=== PATIENT | female | born 1970 | race Caucasian/White ===

== ENCOUNTER 2020-09-24 19:24 | Inpatient (IN) ==
--- NOTE | 2020-09-24 19:58 | Emergency Department Note ---
History of Present Illness General Chief complaint: Fever Stated complaint: FEVER Time Seen by Provider: 09/24/20 19:34 Source: patient and family (Significant other who is at the bedside) Mode of arrival: ambulatory Limitations: no limitations History of Present Illness This patient is a 50-year-old female who has a history of rectal cancer that has metastasized to lymph nodes, comes in after having fever chills which started around 3:00. She just finished her fifth round of chemotherapy she gets it every 2 weeks she does have a port she says with the chemo she is had a lot of diarrhea and nausea and vomiting. She feels slightly nauseated today. She is not had a fever and that is new today she said she felt this occurred around 3:00 this afternoon and had a T-max of 100.6 she called the oncologist and by the time the call back it was 101.8. She had a Covid vaccine x2. She has no headache neck pain or stiffness no photophobia. No cough. She is a mild sore throat from vomiting. No lesions. No cough or shortness of breath or abdominal pain or rectal pain. Besides diarrhea she is had no blood or melena in her stool. No dysuria or hematuria. No lower extremity pain or swelling. No rash. 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 Father No problems noted. Brother No problems noted. Brother No problems noted. Brother No problems noted. Sister No problems noted. Son No problems noted. Son No problems noted. Social History Smoking Status: Never smoker Second Hand Exposure: No; Hx Alcohol Use: Yes Alcohol Intake Frequency: Monthly or Less Alcohol Intake Frequency Comment: Special Occasion Hx Substance Use: No Preferred Language: Serbian Communication Ability: Effective Visual Impairment: Limited Hearing Ability: Normal Ground Support Equipment Assembler Required: No Beliefs That Will Affect Care: None marital status: Current Living Situation: Spouse current occupational status: employed current occupation: Clerical Feels Safe at Home: Yes Childhood Exposure to Second-Hand Smoke: No caffeine: Yes (1 cups of tea/day ) during the past year weight has: remained stable Dental Care, Regularly: Yes Assistive Devices: Contacts Review of Systems A total of 10 systems reviewed and were otherwise negative Physical Exam Vital Signs Vital Signs - 24 hr 09/24/20 19:25 09/24/20 19:30 09/24/20 20:15 Temperature 37.3 C Temperature Source Temporal Artery Scan Pulse Rate 119 H 112 H Pulse Rate from SpO2 Sensor 112 H Respiratory Rate 16 20 14 Respiratory Effort / Characteristics Non-Labored Spontaneous Non-Labored Spontaneous Respiratory Depth Normal Respiratory Pattern Regular Blood Pressure 174/101 H Blood Pressure Mean 125 Blood Pressure Position Sitting Pulse Oximetry 97 98 97 Oxygen Delivery Method Room Air Room Air Sepsis Recent Fever Within 48 Hours Yes Sepsis New/Unexplained Change in Mental Status No Sepsis Action Taken by Nursing No Action Required 09/24/20 21:00 09/24/20 21:08 09/24/20 21:10 Temperature Temperature Source Pulse Rate 104 H 75 Pulse Rate from SpO2 Sensor 104 H Respiratory Rate 16 20 Respiratory Effort / Characteristics Non-Labored Spontaneous Respiratory Depth Normal Respiratory Pattern Blood Pressure 149/97 H Blood Pressure Mean 114 Blood Pressure Position Pulse Oximetry 97 98 Oxygen Delivery Method Room Air Room Air Sepsis Recent Fever Within 48 Hours Sepsis New/Unexplained Change in Mental Status Sepsis Action Taken by Nursing 09/24/20 21:21 09/24/20 22:00 09/24/20 22:30 Temperature 37.2 C Temperature Source Oral Pulse Rate 101 H Pulse Rate from SpO2 Sensor 101 H Respiratory Rate 19 Respiratory Effort / Characteristics Non-Labored Spontaneous Non-Labored Spontaneous Respiratory Depth Normal Respiratory Pattern Blood Pressure 139/88 Blood Pressure Mean 105 Blood Pressure Position Pulse Oximetry 94 Oxygen Delivery Method Room Air Room Air Sepsis Recent Fever Within 48 Hours Sepsis New/Unexplained Change in Mental Status Sepsis Action Taken by Nursing 09/24/20 23:00 09/24/20 23:33 09/24/20 23:34 Temperature Temperature Source Pulse Rate 97 H Pulse Rate from SpO2 Sensor 96 H Respiratory Rate 13 Respiratory Effort / Characteristics Non-Labored Spontaneous Non-Labored Spontaneous Respiratory Depth Normal Respiratory Pattern Regular Blood Pressure 144/96 H Blood Pressure Mean 112 Blood Pressure Position Pulse Oximetry 97 Oxygen Delivery Method Room Air Sepsis Recent Fever Within 48 Hours Sepsis New/Unexplained Change in Mental Status Sepsis Action Taken by Nursing General: Well developed well nourished female who appears in no acute distress, breathing comfortably on room air. Normal speech HEENT: Normal cephalic atraumatic. Pupils are equal round and reactive to light. Extraocular movements are intact. Oropharynx is pink with moist mucous membranes. No swelling of the mouth lips or tongue. Neck: Supple with a midline trachea. No meningeal signs or stiffness, no JVD or bruits. No Stridor. Negative Kernig and Brezinski sign Chest: Clear to auscultation bilaterally. No wheezes or rhonchi. No increased work of breathing. A port in right chest. It is not red or warm. Heart: Regular rate and rhythm without murmurs or gallops. Abdomen: Soft nontender, nondistended without rebound guarding or rigidity. Extremities: No cyanosis clubbing or edema. No calf tenderness or assymetry Spine/Back. Non tender to palpation. No CVA tenderness Skin: Good turgor without rashes. Neurologic exam: Cranial nerves two through 12 are intact. Motor and sensation are intact and symmetrical throughout. Course Administered Medications Discontinued Medications Sodium Chloride (Nss 1000ml) 1,000 mls @ 999 mls/hr IV .Q1H1M ONE Stop: 09/24/20 20:59 Last Infusion: 09/24/20 22:51 Dose: 0 mls/hr Documented by: [id number] Admin: 09/24/20 20:43 Dose: 500 mls/hr Documented by: [id number] Cefepime HCl 2,000 mg/ Syringe 20 mls @ 5 mls/min IV NOW STA; Protocol Stop: 09/24/20 21:38 Last Admin: 09/24/20 21:49 Dose: 5 mls/min Documented by: [id number] Potassium Chloride (K Abhishek / Wtr) 10 meq in 100 mls @ 100 mls/hr IV Q1H BRANDON Stop: 09/24/20 23:44 Last Admin: 09/24/20 23:01 Dose: 100 mls/hr Documented by: [id number] Infusion: 09/24/20 22:45 Dose: 0 mls/hr Documented by: [id number] Admin: 09/24/20 21:50 Dose: 100 mls/hr Documented by: [id number] Ondansetron HCl (Ondansetron Inj 2 Mg/Ml 2 Ml Vial) 4 mg IV NOW STA Stop: 09/24/20 20:39 Last Admin: 09/24/20 20:43 Dose: 4 mg Documented by: [id number] Critical Care Time Critical Care Time: Yes Total Critical Care Time: 35 Due to the patient's concern for sepsis with a fever and chemotherapy, need for IV fluids IV medications, consultation with oncology and hospitalist and repeat frequent reassessment, I have personally spent greater than 35 minutes of critical care time in the direct management of this patient. This includes bedside care, interpretation of diagnostic studies, and testing, discussion with consultants, patient, and family members, and other required patient management activities. This 35 minutes is in excess of all separately billable procedures. Medical Decision Making Differential Diagnosis Infection, neutropenia, C. difficile, pneumonia, sepsis, answer/chemo complication, dehydration, electrolyte or metabolic abnormality, Covid, UTI Medical Records Attestation: I reviewed the patient's medical records. Home Medications Current Medication List: was personally reviewed by me Laboratory Data Attestation: I reviewed the patient's lab results. Result diagrams: 09/24/20 20:36 09/24/20 20:36 Lab Results 09/24/20 09/24/20 09/24/20 Range/Units 20:14 20:14 20:36 WBC 7.01 (4.8-10.8) K/uL RBC 4.04 L (4.2-5.4) M/uL Hgb 11.0 L (12.0-16.0) g/dL Hct 33.8 L (37-47) % MCV 83.7 (80-100) fL MCH 27.2 (25-34) pg MCHC 32.5 (32-36) g/dL RDW Std Deviation 62.9 H (36.4-46.3) fL RDW Coeff of Srini 21.7 H (11.5-14.5) % Plt Count 111 L (130-400) K/uL MPV 9.3 (7.4-10.4) fL Immature Gran % (Auto) 0.9 % Neut % (Auto) 76.4 % Lymph % (Auto) 9.1 % Reeves % (Auto) 13.4 % Eos % (Auto) 0.1 % Baso % (Auto) 0.1 % Neut # (Auto) 5.35 (1.4-6.5) K/uL Lymph # (Auto) 0.64 L (1.2-3.4) K/uL Reeves # (Auto) 0.94 H (0.11-0.59) K/uL Eos # (Auto) 0.01 (0-0.5) K/uL Baso # (Auto) 0.01 (0-0.2) K/uL Immature Gran # (Auto) 0.06 H (0.00-0.02) K/uL Absolute Nucleated RBC 0.02 H (0-0) K/uL Nucleated RBC % (auto) 0.3 % Dohle Bodies 3+ Polychromasia 1+ Anisocytosis Present PT (9.0-12.0) Seconds INR (0.9-1.1) APTT (21.0-31.0) Seconds PTT Ratio Sodium (136-145) mmol/L Potassium (3.5-5.1) mmol/L Chloride (98-107) mmol/L Carbon Dioxide (21-32) mmol/L Anion Gap (3-11) BUN (7-18) mg/dl Creatinine (0.6-1.2) mg/dl Est Cr Clr Drug Dosing ml/min Est GFR ( Amer) ml/min Est GFR (Non-Af Amer) ml/min BUN/Creatinine Ratio (10-20) Glucose (70-99) mg/dl Lactate (0.4-2.0) mmol/L Calcium (8.5-10.1) mg/dl Magnesium (1.8-2.4) mg/dl Total Bilirubin (0.2-1) mg/dl AST (15-37) U/L ALT (12-78) U/L Alkaline Phosphatase (45-117) U/L Total Protein (6.4-8.2) gm/dl Albumin (3.4-5.0) gm/dl Globulin (2.5-4.0) gm/dl Albumin/Globulin Ratio (0.9-2) Procalcitonin (0-0.5) ng/ml COVID-19 Eval Order Covid19 at [facility] SARS-CoV-2 (PCR) NEGATIVE (Negative) 09/24/20 09/24/20 09/24/20 Range/Units 20:36 20:36 20:36 WBC (4.8-10.8) K/uL RBC (4.2-5.4) M/uL Hgb (12.0-16.0) g/dL Hct (37-47) % MCV (80-100) fL MCH (25-34) pg MCHC (32-36) g/dL RDW Std Deviation (36.4-46.3) fL RDW Coeff of Srini (11.5-14.5) % Plt Count (130-400) K/uL MPV (7.4-10.4) fL Immature Gran % (Auto) % Neut % (Auto) % Lymph % (Auto) % Reeves % (Auto) % Eos % (Auto) % Baso % (Auto) % Neut # (Auto) (1.4-6.5) K/uL Lymph # (Auto) (1.2-3.4) K/uL Reeves # (Auto) (0.11-0.59) K/uL Eos # (Auto) (0-0.5) K/uL Baso # (Auto) (0-0.2) K/uL Immature Gran # (Auto) (0.00-0.02) K/uL Absolute Nucleated RBC (0-0) K/uL Nucleated RBC % (auto) % Dohle Bodies Polychromasia Anisocytosis PT 10.6 (9.0-12.0) Seconds INR 1.0 (0.9-1.1) APTT 29.9 (21.0-31.0) Seconds PTT Ratio 1.1 Sodium 139 (136-145) mmol/L Potassium 2.6 L (3.5-5.1) mmol/L Chloride 108 H (98-107) mmol/L Carbon Dioxide 23 (21-32) mmol/L Anion Gap 8.0 (3-11) BUN 10 (7-18) mg/dl Creatinine 0.85 (0.6-1.2) mg/dl Est Cr Clr Drug Dosing 85.1 ml/min Est GFR ( Amer) 92.0 ml/min Est GFR (Non-Af Amer) 79.3 ml/min BUN/Creatinine Ratio 11.4 (10-20) Glucose 124 H (70-99) mg/dl Lactate 2.5 H* (0.4-2.0) mmol/L Calcium 8.5 (8.5-10.1) mg/dl Magnesium 1.5 L (1.8-2.4) mg/dl Total Bilirubin 0.2 (0.2-1) mg/dl AST 103 H (15-37) U/L ALT 128 H (12-78) U/L Alkaline Phosphatase 142 H (45-117) U/L Total Protein 7.1 (6.4-8.2) gm/dl Albumin 3.4 (3.4-5.0) gm/dl Globulin 3.7 (2.5-4.0) gm/dl Albumin/Globulin Ratio 0.9 (0.9-2) Procalcitonin (0-0.5) ng/ml COVID-19 Eval Order SARS-CoV-2 (PCR) (Negative) 09/24/20 09/24/20 Range/Units 20:36 23:02 WBC (4.8-10.8) K/uL RBC (4.2-5.4) M/uL Hgb (12.0-16.0) g/dL Hct (37-47) % MCV (80-100) fL MCH (25-34) pg MCHC (32-36) g/dL RDW Std Deviation (36.4-46.3) fL RDW Coeff of Srini (11.5-14.5) % Plt Count (130-400) K/uL MPV (7.4-10.4) fL Immature Gran % (Auto) % Neut % (Auto) % Lymph % (Auto) % Reeves % (Auto) % Eos % (Auto) % Baso % (Auto) % Neut # (Auto) (1.4-6.5) K/uL Lymph # (Auto) (1.2-3.4) K/uL Reeves # (Auto) (0.11-0.59) K/uL Eos # (Auto) (0-0.5) K/uL Baso # (Auto) (0-0.2) K/uL Immature Gran # (Auto) (0.00-0.02) K/uL Absolute Nucleated RBC (0-0) K/uL Nucleated RBC % (auto) % Dohle Bodies Polychromasia Anisocytosis PT (9.0-12.0) Seconds INR (0.9-1.1) APTT (21.0-31.0) Seconds PTT Ratio Sodium (136-145) mmol/L Potassium (3.5-5.1) mmol/L Chloride (98-107) mmol/L Carbon Dioxide (21-32) mmol/L Anion Gap (3-11) BUN (7-18) mg/dl Creatinine (0.6-1.2) mg/dl Est Cr Clr Drug Dosing ml/min Est GFR ( Amer) ml/min Est GFR (Non-Af Amer) ml/min BUN/Creatinine Ratio (10-20) Glucose (70-99) mg/dl Lactate 1.4 (0.4-2.0) mmol/L Calcium (8.5-10.1) mg/dl Magnesium (1.8-2.4) mg/dl Total Bilirubin (0.2-1) mg/dl AST (15-37) U/L ALT (12-78) U/L Alkaline Phosphatase (45-117) U/L Total Protein (6.4-8.2) gm/dl Albumin (3.4-5.0) gm/dl Globulin (2.5-4.0) gm/dl Albumin/Globulin Ratio (0.9-2) Procalcitonin 1.34 H (0-0.5) ng/ml COVID-19 Eval Order SARS-CoV-2 (PCR) (Negative) Imaging Data Attestation: I personally reviewed and interpreted this imaging study as follows: My Impression: Chest x-rayno acute infiltrate, failure, pneumothorax. There is in a port in the right chest Radiologist's Impression: Chest X-Ray 09/24/20 19:50 XR chest 1V portable HISTORY: 50 years-old Female SEPSIS acute sepsis COMPARISON: Chest radiograph 08/04/2020 TECHNIQUE: Portable AP view of the chest FINDINGS: Cardiomediastinal and hilar silhouettes are within normal limits. Right IJ Gyojmy-j-Yxwr catheter is unchanged. There is no pneumothorax, pleural effusion, airspace consolidation or overt pulmonary edema. The bones of the chest appear grossly intact. Mild mid thoracic dextroscoliosis. IMPRESSION: No acute process. ACT 112: Negative or not required by law. The above report was generated using voice recognition software. It may contain grammatical, syntax or spelling errors. Electronically signed by: Jourdan Alvarez M.D. 09/24/2020 8:05 PM ECG Data Attestation: I personally reviewed and interpreted this ECG as follows: Indication: + weakness Rate (beats per minute): 111 Rhythm: + sinus tachycardia ECG Intervals/blocks: + Normal QRS and + Normal QT ECG [place]: + Normal ECG ST segments: + Nonspecific ST abnormalities ECG Findings: no PACs Comparison ECG Date: no prior available MDM Narrative This patient comes in as described above. She was placed in room C10. She is on chemo (Folfoxiri) and followed by Dr. Nestor Carr for rectal cancer with metastases. She has not yet had radiation or surgery but has had 5 rounds of chemo 2 weeks apart. Given her fever and chills at home there is concern for infection. A full sepsis work-up was ordered. I did review her labs from her most recent visit to her oncologist she has not been neutropenic so far. IV access was established and she was hydrated with a 1 L IV normal saline bolus and further testing was obtained. Her white count is not elevated and she is not neutropenic. However given the fact that she has an elevated lactic acid of 2.5 and she is immunocompromised I did give her cefepime 2 g IV. She was also noted to have a low potassium of 2.6 and was given 2K riders in the ED IV. She does have central access. Her Covid testing was negative. Chest x-ray did not suggest congestive heart failure , pneumonia ,or pneumothorax. She has tachycardia on her EKG but nothing to suggest ischemia. I did discuss case with Nestor Carr who does feel she does need to come in the hospital for IV antibiotics monitoring and electrolyte replenishment and hydration. I did order stool studies that are pending including C. difficile. I consulted Dr. Pina who to see her in ER for further treatment and evaluation Continuous cardiac monitoring: Order was placed in the EMR for continuous cardia c monitoring. Upon my interpretation the patient was noted to be sinus tachycardia with a rate of 105. Impression & Plan Sepsis, Carcinoma of rectosigmoid (colon), Dehydration, Acute hypokalemia, Lab test negative for COVID-19 virus Discharge Plan Visit Data Chief Complaint: Fever Stated Complaint: FEVER ED Provider: Marvin David Discharge Problem: Sepsis, Carcinoma of rectosigmoid (colon), Dehydration, Acute hypokalemia, Lab test negative for COVID-19 virus Forms Stand Alone Forms: [facility] Prescriptions Prescriptions: No Action ondansetron HCl 8 mg tablet 8 mg PO Q8H PRN (Reason: Nausea) RF: 0 prochlorperazine maleate 10 mg tablet 10 mg PO Q6H PRN (Reason: Nausea) RF: 0 hyoscyamine sulfate 0.125 mg tablet 0.125 mg PO Q4 PRN (Reason: STOMACH CRAMPS) RF: 0 Folfoxiri 1 dose PO .[id number] RF: 0 olanzapine 5 mg tablet 5 mg PO UD PRN (Reason: NAUSEA FROM CHEMO) RF: 0 Discharge Problem: Sepsis Qualifiers: Sepsis type: sepsis due to unspecified organism Sepsis acute organ dysfunction status: unspecified Qualified Code(s): A41.9 - Sepsis, unspecified organism
[2020-09-24] MEDS ORDERED: SODIUM CHLORIDE 0.9% 1000ML 1,000 ML IV ONE (19:59)
--- NOTE | 2020-09-24 20:06 | XRay Report ---
XR chest 1V portable HISTORY: 50 years-old Female SEPSIS acute sepsis COMPARISON: Chest radiograph 08/04/2020 TECHNIQUE: Portable AP view of the chest FINDINGS: Cardiomediastinal and hilar silhouettes are within normal limits. Right IJ Qherui-y-Qrsy catheter is unchanged. There is no pneumothorax, pleural effusion, airspace consolidation or overt pulmonary brian a. The bones of the chest appear grossly intact. Mild mid thoracic dextroscoliosis. IMPRESSION: No acute process. ACT 112: Negative or not required by law. The above report was generated using voice recognition software. It may contain grammatical, syntax o r spelling errors. Electronically signed by: Jourdan Alvarez M.D. 09/24/2020 8:05 PM
[2020-09-24] MEDS ORDERED: ONDANSETRON INJ 2 MG/ML 2 ML VIAL IV STA (20:38)
[2020-09-24 20:47] LABS: Hematocrit (blood only) 33.8 % (37-47); Mean Corpuscular Hemoglobin 27.2 pg (25-34); Mean Corpuscular Hgb Conc 32.5 g/dL (32-36); Mean Corpuscular Volume 83.7 fL (80-100); Mean Platelet Volume 9.3 fL (7.4-10.4); Nucleated RBC # (auto) 0.02 K/uL (0-0); Nucleated RBC % (auto) 0.3 %; Platelet Count 111 K/uL (130-400); RDW Coefficient of Variation 21.7 % (11.5-14.5); RDW Standard Deviation 62.9 fL (36.4-46.3); Red Blood Count 4.04 M/uL (4.2-5.4); White Blood Count 7.01 K/uL (4.8-10.8)
[2020-09-24 21:00] LABS: Partial Thromboplastin Ratio 1.1; Partial Thromboplastin Time 29.9 Seconds (21.0-31.0); Prothrombin Time 10.6 Seconds (9.0-12.0)
[2020-09-24 21:07] LABS: Albumin Level 3.4 gm/dl (3.4-5.0); BUN Creatinine Ratio 11.4 (10-20); Calcium 8.5 mg/dl (8.5-10.1); Creatinine Clr Calc Pharmacy 85.1 ml/min; Est GFR (Non-African American) 79.3 ml/min; Magnesium 1.5 mg/dl (1.8-2.4); Potassium 2.6 mmol/L (3.5-5.1)
[2020-09-24 21:10] LABS: Albumin Globulin Ratio 0.9 (0.9-2); Bilirubin,Total 0.2 mg/dl (0.2-1); Globulin 3.7 gm/dl (2.5-4.0); Total Protein 7.1 gm/dl (6.4-8.2)
[2020-09-24 21:14] LABS: Anisocytosis Present; Basophils # (auto) 0.01 K/uL (0-0.2); Basophils % (auto) 0.1 %; Dohle Bodies 3+; Eosinophils # (auto) 0.01 K/uL (0-0.5); Eosinophils % (auto) 0.1 %; Immature Granulocytes # (auto) 0.06 K/uL (0.00-0.02); Immature Granulocytes % (auto) 0.9 %; Lymphocytes # (auto) 0.64 K/uL (1.2-3.4); Lymphocytes % (auto) 9.1 %; Monocytes # (auto) 0.94 K/uL (0.11-0.59); Monocytes % (auto) 13.4 %; Neutrophils # (auto) 5.35 K/uL (1.4-6.5); Neutrophils % (auto) 76.4 %; Polychromasia 1+
[2020-09-24] MEDS ORDERED: CEFEPIME 2,000 MG in SYRINGE 0 ML IV STA (21:35)
[2020-09-24] MEDS: POTASSIUM CHLORIDE / WTR 10 MEQ/100 ML PLCT IV SCH ×2 (21:50→23:01)
[2020-09-25 00:37] LABS: Appearance Urine Cloudy (Clear); Bacteria Urine Automated 1+ (Negative); Bilirubin Urine Negative (Negative); Blood Urine Negative (Negative); Color Urine Yellow; Epithelial Cell Urine Auto >30 /lpf (0-5); Glucose Urine UA Negative (Negative); Ketones Urine Trace (Negative); Leukocyte Esterase Urine Negative (Negative); Nitrite Urine Negative (Negative); Protein Urine Trace (Negative); Specific Gravity Urine 1.023 (1.000-1.030); Urobilinogen Urine Negative (Negative)
--- NOTE | 2020-09-25 00:59 | History and Physical Report ---
DATE OF ADMISSION: 09/24/2020. CHIEF COMPLAINT: Fever. HISTORY OF PRESENT ILLNESS: This is a 50-year-old female with a past medical history significant for rectosigmoid cancer diagnosed in May 2020. She is on chemo currently, adjuvant chemotherapy with FOLFOXIRI, prophylactic filgrastim. Avastin added into the 4th cycle. She had a total of 5 cycles, last 5th cycle was on 09/14/2020, she is to get chemo every 2 weeks. Since she was started on chemo, she is getting constant diarrhea and on and off nausea, vomiting. She has Zofran for nausea. Today at home she developed 101.8 degrees fevers and chills, so that is why she came here. No other complaints. No cough, no chest pain, no shortness of breath, no headache, no blurred visions, no earache, no runny nose. Has some sore throat because of vomiting. She had significant vomiting on Sunday. Currently no abdominal pain. Currently no blood in the stools or black stools. Normal bladder movements. No swelling in the legs, no rash. Ambulating okay. Appetite is not that great. Currently, resting comfortably and hemodynamically stable. In the ER, hemodynamics are stable, but her lactic acid was 2.5 when she came in, but repeat was normal. Potassium was 2.6, magnesium was 1.5. Procalcitonin was 1.34. SARS-CoV-2 PCR was negative and she also had a COVID shot. ALLERGIES: No known drug allergies. PAST MEDICAL HISTORY: As mentioned above. PAST SURGICAL HISTORY: Colonoscopy, dilatation and curettage, insertion of tunneled catheter, vaginal delivery x2. MEDICATIONS: The patient is on FOLFOXIRI chemotherapy, hyoscyamine 0.125 mg p.o. q. 4 hours p.r.n., Zofran 8 mg p.o. q. 8 hours p.r.n., prochlorperazine 10 mg p.o. q. 6 hours p.r.n. FAMILY HISTORY: Significant for son has food allergies; sister has antiphospholipid, lupus; mother has hypertension; father has thyroid disorder. SOCIAL HISTORY: , no smoking, no alcohol, no drug use. REVIEW OF SYSTEMS: As per HPI. Rest of the review of systems is negative. PHYSICAL EXAMINATION: GENERAL: The patient is obese, not in acute distress. VITAL SIGNS: Temperature 37.2, pulse 97, respiratory rate 13, blood pressure 144/96, oxygen 97% on room air. HEENT: Pupils equal, round and reactive to light. Oral mucosa dry. NECK: No JVD, no neck masses. HEART: S1 and S2 heard. Regular rate and rhythm. No murmur, no gallop. RESPIRATORY SYSTEM: Normal AP diameter. No accessory muscle use. No wheeze, no crackles. ABDOMEN: Soft, bowel sounds present, nontender, no distention. CENTRAL NERVOUS SYSTEM: Cranial nerves II-XII grossly intact, nonfocal. EXTREMITIES: No edema, no erythema. LABORATORY DATA: WBC 7, hemoglobin 11, hematocrit 33.8, platelets 111. PT 10.6, INR 1, APTT 29.9. Sodium 139, potassium 2.6, chloride 108, bicarbonate 23, BUN 10, creatinine 0.8, serum glucose 124, lactate 1.4, calcium 8.5, magnesium 1.5, total bilirubin 0.2, AST 102, ALT 122, alkaline phosphatase 142. Procalcitonin 1.34. SARS-CoV-2 PCR negative. IMAGING DATA: Chest x-ray, no acute process. EKG: Sinus tachycardia at a rate of 111. No previous ECGs available. ASSESSMENT AND PLAN: This is a 50-year-old female who is on chemo for rectosigmoid cancer and presents with fever. 1. Fever: The patient is on chemo for rectosigmoid colon cancer diagnosed in May 2020. No neutropenia, no leukopenia or leukocytosis, but her lactic acid was 2.5 on admission. Currently afebrile. Empirically started on vancomycin and cefepime. We will follow the cultures. The patient also having ongoing diarrhea, will check stool for C. diff, and IV fluids and monitor in the tele floor. 2. Hypokalemia and hypomagnesemia: Will replace. Follow the repeat labs. 3. Anemia and thrombocytopenia: Hemoglobin 11 and platelets of 111, possibly from chemo. Will follow the labs. 4. Rectosigmoid colon cancer: Currently on chemo. Follow up with heme/onc. 5. Elevated transaminitis and alkaline phosphatase: We will follow repeat labs in a.m., also get liver ultrasound. 6. Deep venous thrombosis prophylaxis: Placed on Lovenox. Will follow the platelets. DISPOSITION: Admit to tele floor. Expect to discharge home and follow up with family doctor. PT/OT prior to discharge. Social service to help with discharge planning. Level 1 full code. Job ID: [id number] [facility]
[2020-09-25 01:13] LABS: Amorphous Sediment Urine Present (None Prsent)
[2020-09-25 01:14] LABS: RBC Urine Automated 0-4 /hpf (0-4); Uric Acid Crystals Urine Present (None Prsent)
[2020-09-25 01:15] LABS: Cast Urine Automated 0 /lpf (0-5)
[2020-09-25] MEDS ORDERED: NITROGLYCERIN SL 0.4 MG/TAB TAB SL PRN (01:19)
[2020-09-25] MEDS ORDERED: ONDANSETRON INJ 2 MG/ML 2 ML VIAL IV PRN (01:19)
[2020-09-25] MEDS ORDERED: ACETAMINOPHEN 325 MG TAB PO PRN (01:19)
[2020-09-25] MEDS ORDERED: HYOSCYAMINE SULFATE 0.125 MG TAB PO PRN (01:19)
[2020-09-25] MEDS ORDERED: PROCHLORPERAZINE MALEATE 10 MG TAB PO PRN (01:19)
[2020-09-25] MEDS ORDERED: VANCOMYCIN HCL 1,000 MG in SODIUM CHLORIDE 0.9% 250 ML IV SCH (01:19)
[2020-09-25] MEDS ORDERED: VANCOMYCIN CONSULT ACTIVE PRN (01:19)
[2020-09-25] MEDS ORDERED: VANCOMYCIN HCL 2,250 MG in SODIUM CHLORIDE 0.9% 500 ML IV STA (01:54)
[2020-09-25] MEDS ORDERED: POTASSIUM CHLORIDE CRTAB 20 MEQ TABCR PO STA ×2 (01:57→18:11)
[2020-09-25] MEDS ORDERED: CEFEPIME CONSULT ACTIVE PRN (02:00)
[2020-09-25] MEDS: MAGNESIUM SULFATE / D5W 1 GM/100 ML BAG IV SCH ×2 (02:16→04:15)
[2020-09-25] MEDS: D5NSS + 20MEQ KCL 20 MEQ/1,000 ML BAG IV SCH ×3 (02:16→18:34)
[2020-09-25 06:07] LABS: Hemoglobin 9.8 g/dL (12.0-16.0); Mean Corpuscular Hemoglobin 27.5 pg (25-34); Mean Corpuscular Hgb Conc 32.7 g/dL (32-36); Mean Platelet Volume 9.5 fL (7.4-10.4); Nucleated RBC # (auto) 0.02 K/uL (0-0); Nucleated RBC % (auto) 0.3 %; Platelet Count 106 K/uL (130-400); RDW Coefficient of Variation 22.1 % (11.5-14.5); RDW Standard Deviation 64.5 fL (36.4-46.3); Red Blood Count 3.57 M/uL (4.2-5.4); White Blood Count 7.33 K/uL (4.8-10.8)
[2020-09-25] MEDS: CEFEPIME 2,000 MG in SYRINGE 0 ML IV SCH ×3 (06:21→21:57)
[2020-09-25] MEDS ORDERED: HEPARIN 100 UNIT/ML 5ML FLUSH FLUSH PRN (06:28)
[2020-09-25 06:31] LABS: ALC (manual) 1.21 K/uL (1.2-3.4); ANC (manual) 5.16 K/uL (1.4-6.5); Anisocytosis Present; Lymphocytes # (manual) 1.21 K/uL (1.2-3.4); Lymphocytes % (manual) 16.5 %; Monocytes # (manual) 0.89 K/uL (0.11-0.59); Monocytes % (manual) 12.2 %; Neutrophils # (manual) 5.16 K/uL (1.4-6.5); Neutrophils % (manual) 70.4 %; Polychromasia 1+
[2020-09-25 06:50] LABS: Alanine Aminotransferase 98 U/L (12-78); Albumin Level 2.7 gm/dl (3.4-5.0); Alkaline Phosphatase 101 U/L (45-117); Aspartate Aminotransferase 75 U/L (15-37); BUN Creatinine Ratio 10.1 (10-20); Bilirubin Direct < 0.1 mg/dl (0-0.2); Bilirubin,Total 0.3 mg/dl (0.2-1); Blood Urea Nitrogen 7 mg/dl (7-18); Calcium 7.5 mg/dl (8.5-10.1); Carbon Dioxide 24 mmol/L (21-32); Chloride 113 mmol/L (98-107); Creatinine Clr Calc Pharmacy 111.1 ml/min; Est GFR (African American) 119.1 ml/min; Est GFR (Non-African American) 102.8 ml/min; Glucose 126 mg/dl (70-99); Magnesium 2.4 mg/dl (1.8-2.4); Phosphorus 1.6 mg/dl (2.5-4.9); Sodium 142 mmol/L (136-145); Total Protein 5.7 gm/dl (6.4-8.2)
[2020-09-25] MEDS ORDERED: POTASSIUM PHOS 3 MMOL/1 ML INFUSION IV STA (06:53)
--- NOTE | 2020-09-25 06:57 | Hospitalist Progress Note ---
Date of Service September 25, 2020 Assessment & Plan (1) Fever: (2) Carcinoma of rectosigmoid (colon): This is a 50-year-old female who is on chemo for rectosigmoid cancer and presents with fever. 1. Fever in immunocompromised pt. 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 No neutropenia, no leukopenia or leukocytosis, but her lactic acid was 2.5 on admission. Afebrile since arriving to the hospital. Empirically started on vancomycin and cefepime repeat lactic acid 1.4 Procalcitonin 1.4 We will follow the cultures. The patient also having ongoing diarrhea, will check stool for C. diff C. diff negative Follow urine cultx, stool cultx, blood cultx IV fluids and monitor in the tele floor. 2. Hypokalemia, hypomagnesemia, hypophosphatemia: Likely secondary to poor p.o. intake, and GI loss Replete and monitor 3. Anemia and thrombocytopenia: Hemoglobin 11 and platelets of 111, possibly from chemo. Will follow the labs. 4. Rectosigmoid colon cancer: Currently on chemo. Follow up with heme/onc. 5. Elevated transaminitis and alkaline phosphatase: We will follow repeat labs in a.m., also get liver ultrasound. DVT prophylaxis: Placed on Lovenox. Will follow the platelets. DISPOSITION: Admit to tele floor. Expect to discharge home and follow up with family doctor and oncologist. PT/OT prior to discharge. Social service to help with discharge planning. Full code. Admission and Anticipated Discharge Date Admission Date: September 24, 2020 Subjective Patient seen in follow-up of fever, nausea vomiting diarrhea, in the setting of colorectal cancer and chemotherapy treatment Patient reports that she is feeling much better since admission Reports that nausea vomiting and loose stools are normal for her since she started chemotherapy Afebrile since admission Lying in bed in no acute distress, currently has no complaints Review of Systems Review of Systems: All systems reviewed & are unremarkable except as noted in HPI & below Constitutional: no fever and no chills Respiratory: no cough and no dyspnea Cardiovascular: no chest pain and no palpitations Gastrointestinal: + diarrhea/loose stools; no abdominal pain and no vomiting Physical Exam Physical Exam: GENERAL: The patient is obese, not in acute distress. HEENT: NC/AT, EOMI, Pupils equal, round and reactive to light. Oral mucosa dry. NECK: No JVD, no neck masses. HEART: S1 and S2 heard. Regular rate and rhythm. No murmur, no gallop. RESPIRATORY: Normal AP diameter. No accessory muscle use. No wheeze, no crackles. ABDOMEN: Soft, bowel sounds present, nontender, no distention. NEURO: Alert and oriented and answering questions appropriately, no facial asymmetry, speech fluent, moves extremities spontaneously EXTREMITIES: No edema, no erythema. Results & Data Results & Data ([facility]) Vital Signs (Past 12 Hours) Vital Signs Temp Pulse Pulse Resp BP BP Pulse Ox 09/25/20 01:31 36.9 C 88 16 124/92 99 09/25/20 01:19 36.9 C 88 16 124/92 99 09/25/20 00:55 152/94 H 09/25/20 00:49 37.0 C 92 H 20 152/94 H 98 09/25/20 00:08 107 H 17 98 09/24/20 23:00 97 H 13 144/96 H 97 09/24/20 22:30 37.2 C 09/24/20 22:00 101 H 19 139/88 94 09/24/20 21:08 75 20 98 09/24/20 21:00 104 H 16 149/97 H 97 09/24/20 20:15 112 H 14 97 09/24/20 19:30 20 98 09/24/20 19:25 37.3 C 119 H 16 174/101 H 97 Pulse Ox 09/25/20 01:31 09/25/20 01:19 99 09/25/20 00:55 09/25/20 00:49 09/25/20 00:08 09/24/20 23:00 09/24/20 22:30 09/24/20 22:00 09/24/20 21:08 09/24/20 21:00 09/24/20 20:15 09/24/20 19:30 09/24/20 19:25 Laboratory Results 09/25/20 09/25/20 09/25/20 Range/Units 05:16 05:16 00:11 WBC 7.33 (4.8-10.8) K/uL RBC 3.57 L (4.2-5.4) M/uL Hgb 9.8 L (12.0-16.0) g/dL Hct 30.0 L (37-47) % MCV 84.0 (80-100) fL MCH 27.5 (25-34) pg MCHC 32.7 (32-36) g/dL RDW Std Deviation 64.5 H (36.4-46.3) fL RDW Coeff of Srini 22.1 H (11.5-14.5) % Plt Count 106 L (130-400) K/uL MPV 9.5 (7.4-10.4) fL Immature Gran % (Auto) % Neut % (Auto) % Lymph % (Auto) % [place] % (Auto) % Eos % (Auto) % Baso % (Auto) % Neut # (Auto) (1.4-6.5) K/uL Lymph # (Auto) (1.2-3.4) K/uL [place] # (Auto) (0.11-0.59) K/uL Eos # (Auto) (0-0.5) K/uL Baso # (Auto) (0-0.2) K/uL Immature Gran # (Auto) (0.00-0.02) K/uL Absolute Nucleated RBC 0.02 H (0-0) K/uL Nucleated RBC % (auto) 0.3 % Neutrophils % (Manual) 70.4 % Lymphocytes % (Manual) 16.5 % Monocytes % (Manual) 12.2 % Promyelocytes % (Man) % Neutrophils # (Manual) 5.16 (1.4-6.5) K/uL Total Absolute Neuts 5.16 (1.4-6.5) K/uL Lymphocytes # (Manual) 1.21 (1.2-3.4) K/uL Total Abs Lymphocytes 1.21 (1.2-3.4) K/uL Monocytes # (Manual) 0.89 H (0.11-0.59) K/uL Promyelocytes # (Man) (0-0) K/uL Dohle Bodies Polychromasia 1+ Anisocytosis Present PT (9.0-12.0) Seconds INR (0.9-1.1) APTT (21.0-31.0) Seconds PTT Ratio Sodium 142 (136-145) mmol/L Potassium 3.0 L D (3.5-5.1) mmol/L Chloride 113 H (98-107) mmol/L Carbon Dioxide 24 (21-32) mmol/L Anion Gap 5.0 (3-11) BUN 7 (7-18) mg/dl Creatinine 0.65 (0.6-1.2) mg/dl Est Cr Clr Drug Dosing 111.1 ml/min Est GFR ( Amer) 119.1 ml/min Est GFR (Non-Af Amer) 102.8 ml/min BUN/Creatinine Ratio 10.1 (10-20) Glucose 126 H (70-99) mg/dl Lactate (0.4-2.0) mmol/L Calcium 7.5 L (8.5-10.1) mg/dl Phosphorus 1.6 L (2.5-4.9) mg/dl Magnesium 2.4 (1.8-2.4) mg/dl Total Bilirubin 0.3 (0.2-1) mg/dl Direct Bilirubin < 0.1 (0-0.2) mg/dl AST 75 H (15-37) U/L ALT 98 H (12-78) U/L Alkaline Phosphatase 101 (45-117) U/L Total Protein 5.7 L (6.4-8.2) gm/dl Albumin 2.7 L (3.4-5.0) gm/dl Globulin (2.5-4.0) gm/dl Albumin/Globulin Ratio (0.9-2) Procalcitonin (0-0.5) ng/ml Urine Color Urine Appearance (Clear) Urine pH (4.5-7.5) Ur Specific [place] (1.000-1.030) Urine Protein (Negative) Urine Glucose (UA) (Negative) Urine Ketones (Negative) Urine Blood (Negative) Urine Nitrite (Negative) Urine Bilirubin (Negative) Urine Urobilinogen (Negative) Ur Leukocyte Esterase (Negative) Urine WBC (Auto) (0-5) /hpf Urine RBC (Auto) (0-4) /hpf U Hyaline Cast (Auto) (0-5) /lpf U Epithel Cells (Auto) (0-5) /lpf Urine Bacteria (Auto) (Negative) Ur Renal Epithelial Cell Uric Acid Crystals (None Prsent) Amorphous Sediment (None Prsent) Stl C. diff Tox B Gene Negative Cdiff Gene (Neg) COVID-19 Eval Order SARS-CoV-2 (PCR) (Negative) 09/25/20 09/24/20 09/24/20 Range/Units 00:11 23:02 20:36 WBC (4.8-10.8) K/uL RBC (4.2-5.4) M/uL Hgb (12.0-16.0) g/dL Hct (37-47) % MCV (80-100) fL MCH (25-34) pg MCHC (32-36) g/dL RDW Std Deviation (36.4-46.3) fL RDW Coeff of Srini (11.5-14.5) % Plt Count (130-400) K/uL MPV (7.4-10.4) fL Immature Gran % (Auto) % Neut % (Auto) % Lymph % (Auto) % [place] % (Auto) % Eos % (Auto) % Baso % (Auto) % Neut # (Auto) (1.4-6.5) K/uL Lymph # (Auto) (1.2-3.4) K/uL [place] # (Auto) (0.11-0.59) K/uL Eos # (Auto) (0-0.5) K/uL Baso # (Auto) (0-0.2) K/uL Immature Gran # (Auto) (0.00-0.02) K/uL Absolute Nucleated RBC (0-0) K/uL Nucleated RBC % (auto) % Neutrophils % (Manual) % Lymphocytes % (Manual) % Monocytes % (Manual) % Promyelocytes % (Man) % Neutrophils # (Manual) (1.4-6.5) K/uL Total Absolute Neuts (1.4-6.5) K/uL Lymphocytes # (Manual) (1.2-3.4) K/uL Total Abs Lymphocytes (1.2-3.4) K/uL Monocytes # (Manual) (0.11-0.59) K/uL Promyelocytes # (Man) (0-0) K/uL Dohle Bodies Polychromasia Anisocytosis PT (9.0-12.0) Seconds INR (0.9-1.1) APTT (21.0-31.0) Seconds PTT Ratio Sodium (136-145) mmol/L Potassium (3.5-5.1) mmol/L Chloride (98-107) mmol/L Carbon Dioxide (21-32) mmol/L Anion Gap (3-11) BUN (7-18) mg/dl Creatinine (0.6-1.2) mg/dl Est Cr Clr Drug Dosing ml/min Est GFR ( Amer) ml/min Est GFR (Non-Af Amer) ml/min BUN/Creatinine Ratio (10-20) Glucose (70-99) mg/dl Lactate 1.4 (0.4-2.0) mmol/L Calcium (8.5-10.1) mg/dl Phosphorus (2.5-4.9) mg/dl Magnesium (1.8-2.4) mg/dl Total Bilirubin (0.2-1) mg/dl Direct Bilirubin (0-0.2) mg/dl AST (15-37) U/L ALT (12-78) U/L Alkaline Phosphatase (45-117) U/L Total Protein (6.4-8.2) gm/dl Albumin (3.4-5.0) gm/dl Globulin (2.5-4.0) gm/dl Albumin/Globulin Ratio (0.9-2) Procalcitonin 1.34 H (0-0.5) ng/ml Urine Color Yellow Urine Appearance Cloudy A (Clear) Urine pH 5.0 (4.5-7.5) Ur Specific [place] 1.023 (1.000-1.030) Urine Protein Trace H (Negative) Urine Glucose (UA) Negative (Negative) Urine Ketones Trace H (Negative) Urine Blood Negative (Negative) Urine Nitrite Negative (Negative) Urine Bilirubin Negative (Negative) Urine Urobilinogen Negative (Negative) Ur Leukocyte Esterase Negative (Negative) Urine WBC (Auto) 10-30 H (0-5) /hpf Urine RBC (Auto) 0-4 (0-4) /hpf U Hyaline Cast (Auto) 0 (0-5) /lpf U Epithel Cells (Auto) >30 H (0-5) /lpf Urine Bacteria (Auto) 1+ H (Negative) Ur Renal Epithelial Cell Not Reportable Uric Acid Crystals Present A (None Prsent) Amorphous Sediment Present A (None Prsent) Stl C. diff Tox B Gene (Neg) COVID-19 Eval Order SARS-CoV-2 (PCR) (Negative) 09/24/20 09/24/20 09/24/20 Range/Units 20:36 20:36 20:36 WBC (4.8-10.8) K/uL RBC (4.2-5.4) M/uL Hgb (12.0-16.0) g/dL Hct (37-47) % MCV (80-100) fL MCH (25-34) pg MCHC (32-36) g/dL RDW Std Deviation (36.4-46.3) fL RDW Coeff of Srini (11.5-14.5) % Plt Count (130-400) K/uL MPV (7.4-10.4) fL Immature Gran % (Auto) % Neut % (Auto) % Lymph % (Auto) % [place] % (Auto) % Eos % (Auto) % Baso % (Auto) % Neut # (Auto) (1.4-6.5) K/uL Lymph # (Auto) (1.2-3.4) K/uL [place] # (Auto) (0.11-0.59) K/uL Eos # (Auto) (0-0.5) K/uL Baso # (Auto) (0-0.2) K/uL Immature Gran # (Auto) (0.00-0.02) K/uL Absolute Nucleated RBC (0-0) K/uL Nucleated RBC % (auto) % Neutrophils % (Manual) % Lymphocytes % (Manual) % Monocytes % (Manual) % Promyelocytes % (Man) % Neutrophils # (Manual) (1.4-6.5) K/uL Total Absolute Neuts (1.4-6.5) K/uL Lymphocytes # (Manual) (1.2-3.4) K/uL Total Abs Lymphocytes (1.2-3.4) K/uL Monocytes # (Manual) (0.11-0.59) K/uL Promyelocytes # (Man) (0-0) K/uL Dohle Bodies Polychromasia Anisocytosis PT 10.6 (9.0-12.0) Seconds INR 1.0 (0.9-1.1) APTT 29.9 (21.0-31.0) Seconds PTT Ratio 1.1 Sodium 139 (136-145) mmol/L Potassium 2.6 L (3.5-5.1) mmol/L Chloride 108 H (98-107) mmol/L Carbon Dioxide 23 (21-32) mmol/L Anion Gap 8.0 (3-11) BUN 10 (7-18) mg/dl Creatinine 0.85 (0.6-1.2) mg/dl Est Cr Clr Drug Dosing 85.1 ml/min Est GFR ( Amer) 92.0 ml/min Est GFR (Non-Af Amer) 79.3 ml/min BUN/Creatinine Ratio 11.4 (10-20) Glucose 124 H (70-99) mg/dl Lactate 2.5 H* (0.4-2.0) mmol/L Calcium 8.5 (8.5-10.1) mg/dl Phosphorus (2.5-4.9) mg/dl Magnesium 1.5 L (1.8-2.4) mg/dl Total Bilirubin 0.2 (0.2-1) mg/dl Direct Bilirubin (0-0.2) mg/dl AST 103 H (15-37) U/L ALT 128 H (12-78) U/L Alkaline Phosphatase 142 H (45-117) U/L Total Protein 7.1 (6.4-8.2) gm/dl Albumin 3.4 (3.4-5.0) gm/dl Globulin 3.7 (2.5-4.0) gm/dl Albumin/Globulin Ratio 0.9 (0.9-2) Procalcitonin (0-0.5) ng/ml Urine Color Urine Appearance (Clear) Urine pH (4.5-7.5) Ur Specific [place] (1.000-1.030) Urine Protein (Negative) Urine Glucose (UA) (Negative) Urine Ketones (Negative) Urine Blood (Negative) Urine Nitrite (Negative) Urine Bilirubin (Negative) Urine Urobilinogen (Negative) Ur Leukocyte Esterase (Negative) Urine WBC (Auto) (0-5) /hpf Urine RBC (Auto) (0-4) /hpf U Hyaline Cast (Auto) (0-5) /lpf U Epithel Cells (Auto) (0-5) /lpf Urine Bacteria (Auto) (Negative) Ur Renal Epithelial Cell Uric Acid Crystals (None Prsent) Amorphous Sediment (None Prsent) Stl C. diff Tox B Gene (Neg) COVID-19 Eval Order SARS-CoV-2 (PCR) (Negative) 09/24/20 09/24/20 09/24/20 Range/Units 20:36 20:14 20:14 WBC 7.01 (4.8-10.8) K/uL RBC 4.04 L (4.2-5.4) M/uL Hgb 11.0 L (12.0-16.0) g/dL Hct 33.8 L (37-47) % MCV 83.7 (80-100) fL MCH 27.2 (25-34) pg MCHC 32.5 (32-36) g/dL RDW Std Deviation 62.9 H (36.4-46.3) fL RDW Coeff of Srini 21.7 H (11.5-14.5) % Plt Count 111 L (130-400) K/uL MPV 9.3 (7.4-10.4) fL Immature Gran % (Auto) 0.9 % Neut % (Auto) 76.4 % Lymph % (Auto) 9.1 % [place] % (Auto) 13.4 % Eos % (Auto) 0.1 % Baso % (Auto) 0.1 % Neut # (Auto) 5.35 (1.4-6.5) K/uL Lymph # (Auto) 0.64 L (1.2-3.4) K/uL [place] # (Auto) 0.94 H (0.11-0.59) K/uL Eos # (Auto) 0.01 (0-0.5) K/uL Baso # (Auto) 0.01 (0-0.2) K/uL Immature Gran # (Auto) 0.06 H (0.00-0.02) K/uL Absolute Nucleated RBC 0.02 H (0-0) K/uL Nucleated RBC % (auto) 0.3 % Neutrophils % (Manual) % Lymphocytes % (Manual) % Monocytes % (Manual) % Promyelocytes % (Man) % Neutrophils # (Manual) (1.4-6.5) K/uL Total Absolute Neuts (1.4-6.5) K/uL Lymphocytes # (Manual) (1.2-3.4) K/uL Total Abs Lymphocytes (1.2-3.4) K/uL Monocytes # (Manual) (0.11-0.59) K/uL Promyelocytes # (Man) (0-0) K/uL Dohle Bodies 3+ Polychromasia 1+ Anisocytosis Present PT (9.0-12.0) Seconds INR (0.9-1.1) APTT (21.0-31.0) Seconds PTT Ratio Sodium (136-145) mmol/L Potassium (3.5-5.1) mmol/L Chloride (98-107) mmol/L Carbon Dioxide (21-32) mmol/L Anion Gap (3-11) BUN (7-18) mg/dl Creatinine (0.6-1.2) mg/dl Est Cr Clr Drug Dosing ml/min Est GFR ( Amer) ml/min Est GFR (Non-Af Amer) ml/min BUN/Creatinine Ratio (10-20) Glucose (70-99) mg/dl Lactate (0.4-2.0) mmol/L Calcium (8.5-10.1) mg/dl Phosphorus (2.5-4.9) mg/dl Magnesium (1.8-2.4) mg/dl Total Bilirubin (0.2-1) mg/dl Direct Bilirubin (0-0.2) mg/dl AST (15-37) U/L ALT (12-78) U/L Alkaline Phosphatase (45-117) U/L Total Protein (6.4-8.2) gm/dl Albumin (3.4-5.0) gm/dl Globulin (2.5-4.0) gm/dl Albumin/Globulin Ratio (0.9-2) Procalcitonin (0-0.5) ng/ml Urine Color Urine Appearance (Clear) Urine pH (4.5-7.5) Ur Specific [place] (1.000-1.030) Urine Protein (Negative) Urine Glucose (UA) (Negative) Urine Ketones (Negative) Urine Blood (Negative) Urine Nitrite (Negative) Urine Bilirubin (Negative) Urine Urobilinogen (Negative) Ur Leukocyte Esterase (Negative) Urine WBC (Auto) (0-5) /hpf Urine RBC (Auto) (0-4) /hpf U Hyaline Cast (Auto) (0-5) /lpf U Epithel Cells (Auto) (0-5) /lpf Urine Bacteria (Auto) (Negative) Ur Renal Epithelial Cell Uric Acid Crystals (None Prsent) Amorphous Sediment (None Prsent) Stl C. diff Tox B Gene (Neg) COVID-19 Eval Order Covid19 at [facility] SARS-CoV-2 (PCR) NEGATIVE (Negative) Medications Administered Current Inpatient Medications Acetaminophen (Acetaminophen 325 Mg Tab) 650 mg PO Q4H PRN PRN Reason: Pain or Fever Stop: 10/25/20 01:18 Enoxaparin Sodium (Enoxaparin Inj 40 Mg/0.4 Ml Syr) 40 mg SQ DAILY BRANDON Stop: 10/25/20 08:59 Heparin Sodium (Porcine) (Heparin 100 Unit/Ml 5ml Flush) 5 ml FLUSH PRN PRN PRN Reason: Flush Stop: 10/25/20 06:27 Hyoscyamine (Hyoscyamine Sulfate 0.125 Mg Tab) 0.125 mg PO Q4 PRN PRN Reason: STOMACH CRAMPS Stop: 10/25/20 01:18 Potassium Chloride/Dextrose/Sod Cl (D5nss + 20meq Kcl) 20 meq in 1,000 mls @ 125 mls/hr IV .Q8H BRANDON Stop: 10/25/20 01:59 Last Admin: 09/25/20 02:16 Dose: 125 mls/hr Documented by: Cefepime HCl 2,000 mg/ Syringe 20 mls @ 5 mls/min IV Q8H BRANDON; Protocol Stop: 09/27/20 05:59 Last Admin: 09/25/20 06:21 Dose: 5 mls/min Documented by: Vancomycin HCl 1,250 mg/ (Sodium Chloride) 275 mls @ 200 mls/hr IV Q12H BRANDON Stop: 09/27/20 13:59 Miscellaneous Information (Vancomycin Consult Active) 1 ea N/A UD PRN PRN Reason: Consult Stop: 10/25/20 01:18 Miscellaneous Information (Cefepime Consult Active) 1 ea N/A UD PRN PRN Reason: Consult Stop: 10/25/20 01:59 Nitroglycerin (Nitroglycerin Sl 0.4 Mg/Tab Tab) 0.4 mg SL UD PRN PRN Reason: Chest Pain Stop: 10/25/20 01:18 Ondansetron HCl (Ondansetron Inj 2 Mg/Ml 2 Ml Vial) 4 mg IV Q6H PRN PRN Reason: Nausea Stop: 10/25/20 01:18 Potassium Phosphate (Potassium Phos 3 Mmol/1 Ml Infusion) 15 mmol IV NOW STA Stop: 09/25/20 06:54 Prochlorperazine (Prochlorperazine Maleate 10 Mg Tab) 10 mg PO Q6H PRN PRN Reason: Nausea Stop: 10/25/20 01:18 Last Admin: 09/25/20 02:18 Dose: 10 mg Documented by:
[2020-09-25] MEDS ORDERED: POTASSIUM PHOSPHATE 15 MMOL in SODIUM CHLORIDE 0.9% 250 ML IV ONE (07:00)
[2020-09-25] MEDS: ENOXAPARIN INJ 40 MG/0.4 ML SYR SQ SCH (07:27)
--- NOTE | 2020-09-25 10:21 | Electrocardiogram Report ---
Test Reason : Blood Pressure : / mmHG Vent. Rate : 111 BPM Atrial Rate : 111 BPM P-R Int : 140 ms QRS Dur : 078 ms QT Int : 318 ms P-R-T Axes : 057 025 004 degrees QTc Int : 432 ms Sinus tachycardia Nonspecific ST abnormality Abnormal ECG No previous ECGs available Confirmed by Alexander Monson ([id number]) on 09/25/2020 10:20:55 AM Referred By: Nestor Carr Confirmed By:Louie Monson
--- NOTE | 2020-09-25 11:33 | Ultrasound Report ---
US liver CLINICAL HISTORY: 50 years-old Female presenting with elevated ast/alt. Patient is on chemotherapy fo r colon cancer TECHNIQUE: Real-time grayscale ultrasound imaging of the upper abdomen was performed for a focused ev aluation at the site of clinical concern. COMPARISON: Images of the abdominal ultrasound performed on June 11, 2020. No report available. FINDINGS: Visualized portion of the pancreas shows no evidence of focal lesions. Liver is normal in size with diffuse increase in echogenicity and coarsening of echotexture. No intra hepatic biliary dilatation is seen. There is 1.9 x 1.7 area of decreased echogenicity within liver pa renchyma near gallbladder wall is seen which shows no evidence of blood flow and was also visualized during prior study performed on June 11, 2020. Gallbladder is contracted in the postprandial state which limits evaluation. No definite gallbladder wall abnormality or intraluminal calculi are seen. Common bile duct measures 0.6 cm in size. Visualized portion of the right kidney shows no evidence of hydronephrosis. IMPRESSION: 1. Hepatic steatosis. Questionable hypoechoic lesion within liver parenchyma which shows no evidence of blood flow and is also seen during prior study. Metastatic disease cannot be completely ruled out . Please correlate above-mentioned findings with prior history. Further evaluation is per clinical pr otocol. ACT 112: Positive. There are findings on this exam that require communication between the performing entity and the patient following Patient Test Result Information Act ([place] Act 112) guidelines. Electronically signed by: Elida Hopkins DO 09/25/2020 11:31 AM
[2020-09-25] MEDS: VANCOMYCIN HCL 1,250 MG in SODIUM CHLORIDE 0.9% 250 ML IV SCH (13:59)
[2020-09-25 14:27] LABS: Appearance Urine Cloudy (Clear); Bacteria Urine Automated Negative (Negative); Bilirubin Urine Negative (Negative); Blood Urine Negative (Negative); Color Urine Yellow; Epithelial Cell Urine Auto >30 /lpf (0-5); Glucose Urine UA Negative (Negative); Ketones Urine Trace (Negative); Leukocyte Esterase Urine Negative (Negative); Nitrite Urine Negative (Negative); Protein Urine Trace (Negative); Specific Gravity Urine 1.019 (1.000-1.030); Urobilinogen Urine Negative (Negative)
[2020-09-25 14:42] LABS: Mucus Urine Present (None Prsent); Uric Acid Crystals Urine Present (None Prsent)
[2020-09-25 14:43] LABS: Amorphous Sediment Urine Present (None Prsent); RBC Urine Automated 0-4 /hpf (0-4)
[2020-09-25 15:31] LABS: Calcium 7.8 mg/dl (8.5-10.1); Creatinine Clr Calc Pharmacy 116.5 ml/min; Est GFR (Non-African American) 104.4 ml/min; Potassium 3.4 mmol/L (3.5-5.1)
[2020-09-25] MEDS ORDERED: POTASSIUM CHLORIDE / WTR 10 MEQ/100 ML PLCT IV ONE (18:15)
[2020-09-26] MEDS: VANCOMYCIN HCL 1,250 MG in SODIUM CHLORIDE 0.9% 250 ML IV SCH (02:58)
[2020-09-26] MEDS: CEFEPIME 2,000 MG in SYRINGE 0 ML IV SCH ×3 (05:40→21:58)
[2020-09-26] MEDS: D5NSS + 20MEQ KCL 20 MEQ/1,000 ML BAG IV SCH ×2 (05:47→17:39)
--- NOTE | 2020-09-26 06:58 | Hospitalist Progress Note ---
Date of Service September 26, 2020 Assessment & Plan (1) Fever: (2) Carcinoma of rectosigmoid (colon): This is a 50-year-old female who is on chemo for rectosigmoid cancer and presents with fever. 1. Fever in immunocompromised pt. 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 No neutropenia, no leukopenia or leukocytosis, but her lactic acid was 2.5 on admission. Afebrile since arriving to the hospital. Empirically started on vancomycin and cefepime, will stop vancomycin now repeat lactic acid 1.4 Procalcitonin 1.4 -> 0.8 We will follow the cultures. The patient also having ongoing diarrhea, will check stool for C. diff C. diff negative Follow urine cultx, stool cultx, blood cultx IV fluids and monitor in the tele floor. 2. Hypokalemia, hypomagnesemia, hypophosphatemia: Likely secondary to poor p.o. intake, and GI loss Replete and monitor 3. Anemia and thrombocytopenia: Hemoglobin 11 and platelets of 111, possibly from chemo. Will follow the labs. 4. Rectosigmoid colon cancer: Currently on chemo. Follow up with heme/onc. 5. Elevated transaminitis and alkaline phosphatase: We will follow repeat labs in a.m., also get liver ultrasound. Liver US - IMPRESSION: 1. Hepatic steatosis. Questionable hypoechoic lesion within liver parenchyma which shows no evidence of blood flow and is also seen during prior study. Metastatic disease cannot be completely ruled out. Please correlate above- mentioned findings with prior history. Further evaluation is per clinical protocol. DVT prophylaxis: Placed on Lovenox. Will follow the platelets. DISPOSITION: Admit to tele floor. Expect to discharge home and follow up with family doctor and oncologist. PT/OT prior to discharge. Social service to help with discharge planning. Full code. Admission and Anticipated Discharge Date Admission Date: September 24, 2020 Subjective Patient seen in follow-up of fever, nausea vomiting diarrhea, in the setting of colorectal cancer and chemotherapy treatment Patient reports that she is feeling much better since admission Reports that nausea vomiting and loose stools are normal for her since she started chemotherapy Afebrile since admission Lying in bed in no acute distress, currently has no complaints Review of Systems Review of Systems: All systems reviewed & are unremarkable except as noted in HPI & below Constitutional: no fever and no chills Respiratory: no cough and no dyspnea Cardiovascular: no chest pain and no palpitations Gastrointestinal: + diarrhea/loose stools; no abdominal pain and no vomiting Physical Exam Physical Exam: GENERAL: The patient is obese, not in acute distress. HEENT: NC/AT, EOMI, Pupils equal, round and reactive to light. Oral mucosa dry. NECK: No JVD, no neck masses. HEART: S1 and S2 heard. Regular rate and rhythm. No murmur, no gallop. RESPIRATORY: Normal AP diameter. No accessory muscle use. No wheeze, no crackles. ABDOMEN: Soft, bowel sounds present, nontender, no distention. NEURO: Alert and oriented and answering questions appropriately, no facial asymmetry, speech fluent, moves extremities spontaneously EXTREMITIES: No edema, no erythema. Results & Data Results & Data ([facility]) Vital Signs (Past 12 Hours) Vital Signs Temp Pulse Pulse Resp BP Pulse Ox Pulse Ox 09/26/20 02:59 36.8 C 78 16 112/68 97 09/26/20 01:19 98 09/25/20 23:59 78 09/25/20 23:34 36.7 C 81 19 105/65 97 09/25/20 21:00 96 09/25/20 19:19 36.7 C 83 18 135/98 98 Laboratory Results 09/26/20 09/26/20 09/26/20 Range/Units 07:39 07:39 07:39 WBC 12.02 H (4.8-10.8) K/uL RBC 3.53 L (4.2-5.4) M/uL Hgb 9.5 L (12.0-16.0) g/dL Hct 31.0 L (37-47) % MCV 87.8 (80-100) fL MCH 26.9 (25-34) pg MCHC 30.6 L (32-36) g/dL RDW Std Deviation 71.7 H (36.4-46.3) fL RDW Coeff of Srini 23.2 H (11.5-14.5) % Plt Count 112 L (130-400) K/uL MPV 9.6 (7.4-10.4) fL Immature Gran % (Auto) 2.0 % Neut % (Auto) 67.7 % Lymph % (Auto) 15.3 % [place] % (Auto) 14.1 % Eos % (Auto) 0.7 % Baso % (Auto) 0.2 % Neut # (Auto) 8.12 H (1.4-6.5) K/uL Lymph # (Auto) 1.84 (1.2-3.4) K/uL [place] # (Auto) 1.70 H (0.11-0.59) K/uL Eos # (Auto) 0.09 (0-0.5) K/uL Baso # (Auto) 0.03 (0-0.2) K/uL Immature Gran # (Auto) 0.24 H (0.00-0.02) K/uL Absolute Nucleated RBC 0.06 H (0-0) K/uL Nucleated RBC % (auto) 0.5 % Polychromasia 1+ Anisocytosis Present Sodium 145 (136-145) mmol/L Potassium 3.9 (3.5-5.1) mmol/L Chloride 120 H (98-107) mmol/L Carbon Dioxide 20 L (21-32) mmol/L Anion Gap 5.0 (3-11) BUN 5 L (7-18) mg/dl Creatinine 0.64 (0.6-1.2) mg/dl Est Cr Clr Drug Dosing 114.9 ml/min Est GFR ( Amer) 119.7 ml/min Est GFR (Non-Af Amer) 103.3 ml/min BUN/Creatinine Ratio 7.1 L (10-20) Glucose 96 (70-99) mg/dl Calcium 8.1 L (8.5-10.1) mg/dl Phosphorus 2.2 L (2.5-4.9) mg/dl Magnesium 2.2 (1.8-2.4) mg/dl Procalcitonin 0.80 H (0-0.5) ng/ml Medications Administered Current Inpatient Medications Acetaminophen (Acetaminophen 325 Mg Tab) 650 mg PO Q4H PRN PRN Reason: Pain or Fever Stop: 10/25/20 01:18 Enoxaparin Sodium (Enoxaparin Inj 40 Mg/0.4 Ml Syr) 40 mg SQ DAILY BRANDON Stop: 10/25/20 08:59 Last Admin: 09/26/20 07:38 Dose: 40 mg Documented by: Heparin Sodium (Porcine) (Heparin 100 Unit/Ml 5ml Flush) 5 ml FLUSH PRN PRN PRN Reason: Flush Stop: 10/25/20 06:27 Hyoscyamine (Hyoscyamine Sulfate 0.125 Mg Tab) 0.125 mg PO Q4 PRN PRN Reason: STOMACH CRAMPS Stop: 10/25/20 01:18 Potassium Chloride/Dextrose/Sod Cl (D5nss + 20meq Kcl) 20 meq in 1,000 mls @ 80 mls/hr IV .[id number] BRANDON Stop: 10/25/20 01:59 Last Admin: 09/26/20 05:47 Dose: 80 mls/hr Documented by: Cefepime HCl 2,000 mg/ Syringe 20 mls @ 5 mls/min IV Q8H [facility]; Protocol Stop: 09/29/20 05:59 Last Admin: 09/26/20 14:10 Dose: 5 mls/min Documented by: Miscellaneous Information (Cefepime Consult Active) 1 ea N/A UD PRN PRN Reason: Consult Stop: 10/25/20 01:59 Nitroglycerin (Nitroglycerin Sl 0.4 Mg/Tab Tab) 0.4 mg SL UD PRN PRN Reason: Chest Pain Stop: 10/25/20 01:18 Ondansetron HCl (Ondansetron Inj 2 Mg/Ml 2 Ml Vial) 4 mg IV Q6H PRN PRN Reason: Nausea Stop: 10/25/20 01:18 Prochlorperazine (Prochlorperazine Maleate 10 Mg Tab) 10 mg PO Q6H PRN PRN Reason: Nausea Stop: 10/25/20 01:18 Last Admin: 09/25/20 02:18 Dose: 10 mg Documented by:
[2020-09-26] MEDS: ENOXAPARIN INJ 40 MG/0.4 ML SYR SQ SCH (07:38)
[2020-09-26 08:16] LABS: Mean Corpuscular Hgb Conc 30.6 g/dL (32-36); Mean Platelet Volume 9.6 fL (7.4-10.4); Nucleated RBC # (auto) 0.06 K/uL (0-0); Nucleated RBC % (auto) 0.5 %; Platelet Count 112 K/uL (130-400)
[2020-09-26 08:39] LABS: BUN Creatinine Ratio 7.1 (10-20); Calcium 8.1 mg/dl (8.5-10.1); Creatinine Clr Calc Pharmacy 114.9 ml/min; Est GFR (African American) 119.7 ml/min; Est GFR (Non-African American) 103.3 ml/min; Magnesium 2.2 mg/dl (1.8-2.4); Potassium 3.9 mmol/L (3.5-5.1)
[2020-09-26 08:41] LABS: Anisocytosis Present; Basophils # (auto) 0.03 K/uL (0-0.2); Basophils % (auto) 0.2 %; Eosinophils # (auto) 0.09 K/uL (0-0.5); Eosinophils % (auto) 0.7 %; Hemoglobin 9.5 g/dL (12.0-16.0); Immature Granulocytes # (auto) 0.24 K/uL (0.00-0.02); Lymphocytes # (auto) 1.84 K/uL (1.2-3.4); Lymphocytes % (auto) 15.3 %; Mean Corpuscular Hemoglobin 26.9 pg (25-34); Mean Corpuscular Volume 87.8 fL (80-100); Monocytes % (auto) 14.1 %; Neutrophils # (auto) 8.12 K/uL (1.4-6.5); Neutrophils % (auto) 67.7 %; Polychromasia 1+; RDW Coefficient of Variation 23.2 % (11.5-14.5); RDW Standard Deviation 71.7 fL (36.4-46.3); Red Blood Count 3.53 M/uL (4.2-5.4); White Blood Count 12.02 K/uL (4.8-10.8)
[2020-09-26 08:45] LABS: Phosphorus 2.2 mg/dl (2.5-4.9)
[2020-09-27] MEDS: D5NSS + 20MEQ KCL 20 MEQ/1,000 ML BAG IV SCH (05:46)
[2020-09-27] MEDS: CEFEPIME 2,000 MG in SYRINGE 0 ML IV SCH (05:47)
[2020-09-27] MEDS: ENOXAPARIN INJ 40 MG/0.4 ML SYR SQ SCH (07:26)
[2020-09-27 07:51] LABS: Basophils # (auto) 0.02 K/uL (0-0.2); Basophils % (auto) 0.1 %; Eosinophils # (auto) 0.15 K/uL (0-0.5); Eosinophils % (auto) 1.1 %; Hematocrit (blood only) 32.3 % (37-47); Hemoglobin 9.9 g/dL (12.0-16.0); Immature Granulocytes # (auto) 0.42 K/uL (0.00-0.02); Lymphocytes # (auto) 2.06 K/uL (1.2-3.4); Lymphocytes % (auto) 14.6 %; Mean Corpuscular Hgb Conc 30.7 g/dL (32-36); Mean Corpuscular Volume 88.3 fL (80-100); Monocytes # (auto) 1.56 K/uL (0.11-0.59); Monocytes % (auto) 11.1 %; Neutrophils # (auto) 9.89 K/uL (1.4-6.5); Neutrophils % (auto) 70.1 %; Nucleated RBC # (auto) 0.08 K/uL (0-0); Nucleated RBC % (auto) 0.6 %; Platelet Count 131 K/uL (130-400); RDW Coefficient of Variation 23.4 % (11.5-14.5); RDW Standard Deviation 73.2 fL (36.4-46.3); Red Blood Count 3.66 M/uL (4.2-5.4)
--- NOTE | 2020-09-27 08:04 | Hospitalist Progress Note ---
Date of Service September 27, 2020 Assessment & Plan (1) Fever: (2) Carcinoma of rectosigmoid (colon): This is a 50-year-old female who is on chemo for rectosigmoid cancer and presents with fever. 1. Fever in immunocompromised pt. 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 No neutropenia, no leukopenia or leukocytosis, but her lactic acid was 2.5 on admission. Afebrile since arriving to the hospital. Empirically started on vancomycin and cefepime, will stop vancomycin now repeat lactic acid 1.4 Procalcitonin 1.4 -> 0.8 We will follow the cultures. The patient also having ongoing diarrhea, will check stool for C. diff C. diff negative Ucultx - negative Blood cultx - negative in 48 hrs Stool cultx - so far negative Follow final stool cultx, blood cultx IV fluids and monitor in the tele floor. Patient is clinically much improved, and has been afebrile since admission. Inquiring about going home and following up with oncology. Discussed with Dr. Carr, patient's oncologist, as patient has appointment tomorrow (09/28/20). Will discharge patient on Augmentin for next 3 days. Will have her healthcare providers follow-up on final cultures. Patient to see Dr. Carr tomorrow. 2. Hypokalemia, hypomagnesemia, hypophosphatemia: Likely secondary to poor p.o. intake, and GI loss Replete and monitor Will discharge on small dose of potassium and Phos, follow-up levels as outpatient 3. Anemia and thrombocytopenia: Hemoglobin 11 and platelets of 111, possibly from chemo. Will follow the labs. 4. Rectosigmoid colon cancer: Currently on chemo. Follow up with heme/onc. 5. Elevated LFTs and alkaline phosphatase: Continue to monitor also get liver ultrasound. LFTs trending down Liver US - IMPRESSION: 1. Hepatic steatosis. Questionable hypoechoic lesion within liver parenchyma which shows no evidence of blood flow and is also seen during prior study. Metastatic disease cannot be completely ruled out. Please correlate above- mentioned findings with prior history. Further evaluation is per clinical protocol. DVT prophylaxis: Placed on Lovenox. Will follow the platelets. DISPOSITION: Plan to discharge home and follow up with family doctor and oncolo gist. Full code. Admission and Anticipated Discharge Date Admission Date: September 24, 2020 Subjective Patient seen in follow-up of fever, nausea vomiting diarrhea, in the setting of colorectal cancer and chemotherapy treatment Patient reports that she is feeling much better since admission Reports that nausea vomiting and loose stools are normal for her since she started chemotherapy Afebrile since admission Lying in bed in no acute distress, currently has no complaints Review of Systems Review of Systems: All systems reviewed & are unremarkable except as noted in HPI & below Constitutional: no fever and no chills Respiratory: no cough and no dyspnea Gastrointestinal: + diarrhea/loose stools; no abdominal pain and no vomiting Physical Exam Physical Exam: GENERAL: The patient is obese, not in acute distress. HEENT: NC/AT, EOMI, Pupils equal, round and reactive to light. Oral mucosa dry. NECK: No JVD, no neck masses. HEART: S1 and S2 heard. Regular rate and rhythm. No murmur, no gallop. RESPIRATORY: Normal AP diameter. No accessory muscle use. No wheeze, no crackles. ABDOMEN: Soft, bowel sounds present, nontender, no distention. NEURO: Alert and oriented and answering questions appropriately, no facial asymmetry, speech fluent, moves extremities spontaneously EXTREMITIES: No edema, no erythema. Results & Data Results & Data ([facility]) Vital Signs (Past 12 Hours) Vital Signs Temp Pulse Pulse Resp BP Pulse Ox Pulse Ox 09/27/20 07:46 36.4 C L 77 19 151/87 H 98 09/27/20 03:25 36.8 C 76 20 137/81 98 09/27/20 01:00 96 09/26/20 23:59 101 H 09/26/20 23:33 36.8 C 78 20 116/72 100 09/26/20 21:00 98 Laboratory Results 09/27/20 09/27/20 Range/Units 07:35 07:35 WBC 14.10 H (4.8-10.8) K/uL RBC 3.66 L (4.2-5.4) M/uL Hgb 9.9 L (12.0-16.0) g/dL Hct 32.3 L (37-47) % MCV 88.3 (80-100) fL MCH 27.0 (25-34) pg MCHC 30.7 L (32-36) g/dL RDW Std Deviation 73.2 H (36.4-46.3) fL RDW Coeff of Srini 23.4 H (11.5-14.5) % Plt Count 131 (130-400) K/uL MPV 9.0 (7.4-10.4) fL Immature Gran % (Auto) 3.0 % Neut % (Auto) 70.1 % Lymph % (Auto) 14.6 % Briscoe % (Auto) 11.1 % Eos % (Auto) 1.1 % Baso % (Auto) 0.1 % Neut # (Auto) 9.89 H (1.4-6.5) K/uL Lymph # (Auto) 2.06 (1.2-3.4) K/uL Briscoe # (Auto) 1.56 H (0.11-0.59) K/uL Eos # (Auto) 0.15 (0-0.5) K/uL Baso # (Auto) 0.02 (0-0.2) K/uL Immature Gran # (Auto) 0.42 H (0.00-0.02) K/uL Absolute Nucleated RBC 0.08 H (0-0) K/uL Nucleated RBC % (auto) 0.6 % Anisocytosis Present Tear Drop Cells 1+ Sodium 141 (136-145) mmol/L Potassium 3.6 (3.5-5.1) mmol/L Chloride 116 H (98-107) mmol/L Carbon Dioxide 19 L (21-32) mmol/L Anion Gap 6.0 (3-11) BUN 6 L (7-18) mg/dl Creatinine 0.68 (0.6-1.2) mg/dl Est Cr Clr Drug Dosing 107.7 ml/min Est GFR ( Amer) 117.4 ml/min Est GFR (Non-Af Amer) 101.3 ml/min BUN/Creatinine Ratio 8.4 L (10-20) Glucose 93 (70-99) mg/dl Calcium 7.9 L (8.5-10.1) mg/dl Phosphorus 2.2 L (2.5-4.9) mg/dl Magnesium 2.0 (1.8-2.4) mg/dl Medications Administered Current Inpatient Medications Acetaminophen (Acetaminophen 325 Mg Tab) 650 mg PO Q4H PRN PRN Reason: Pain or Fever Stop: 10/25/20 01:18 Enoxaparin Sodium (Enoxaparin Inj 40 Mg/0.4 Ml Syr) 40 mg SQ DAILY [facility] Stop: 10/25/20 08:59 Last Admin: 09/27/20 07:26 Dose: 40 mg Documented by: Heparin Sodium (Porcine) (Heparin 100 Unit/Ml 5ml Flush) 5 ml FLUSH PRN PRN PRN Reason: Flush Stop: 10/25/20 06:27 Hyoscyamine (Hyoscyamine Sulfate 0.125 Mg Tab) 0.125 mg PO Q4 PRN PRN Reason: STOMACH CRAMPS Stop: 10/25/20 01:18 Potassium Chloride/Dextrose/Sod Cl (D5nss + 20meq Kcl) 20 meq in 1,000 mls @ 80 mls/hr IV .[id number] [facility] Stop: 10/25/20 01:59 Last Admin: 09/27/20 05:46 Dose: 80 mls/hr Documented by: Cefepime HCl 2,000 mg/ Syringe 20 mls @ 5 mls/min IV Q8H [facility]; Protocol Stop: 09/29/20 05:59 Last Admin: 09/27/20 05:47 Dose: 5 mls/min Documented by: Miscellaneous Information (Cefepime Consult Active) 1 ea N/A UD PRN PRN Reason: Consult Stop: 10/25/20 01:59 Nitroglycerin (Nitroglycerin Sl 0.4 Mg/Tab Tab) 0.4 mg SL UD PRN PRN Reason: Chest Pain Stop: 10/25/20 01:18 Ondansetron HCl (Ondansetron Inj 2 Mg/Ml 2 Ml Vial) 4 mg IV Q6H PRN PRN Reason: Nausea Stop: 10/25/20 01:18 Prochlorperazine (Prochlorperazine Maleate 10 Mg Tab) 10 mg PO Q6H PRN PRN Reason: Nausea Stop: 10/25/20 01:18 Last Admin: 09/25/20 02:18 Dose: 10 mg Documented by:
[2020-09-27 08:26] LABS: BUN Creatinine Ratio 8.4 (10-20); Calcium 7.9 mg/dl (8.5-10.1); Creatinine Clr Calc Pharmacy 107.7 ml/min; Est GFR (African American) 117.4 ml/min; Est GFR (Non-African American) 101.3 ml/min; Phosphorus 2.2 mg/dl (2.5-4.9); Potassium 3.6 mmol/L (3.5-5.1)
[2020-09-27 08:33] LABS: Anisocytosis Present; Tear Drop Cells 1+
[2020-09-27] MEDS ORDERED: POTASSIUM CHLORIDE CRTAB 20 MEQ TABCR PO STA (09:00)
--- NOTE | 2020-09-27 10:41 | Discharge Summary ---
Date of Service September 27, 2020 Admission HPI Per Admitting Provider This is a 50-year-old female with a past medical history significant for rectosigmoid cancer diagnosed in May 2020. She is on chemo currently, adjuvant chemotherapy with FOLFOXIRI, prophylactic filgrastim. Avastin added into the 4th cycle. She had a total of 5 cycles, last 5th cycle was on 09/14/2020, she is to get chemo every 2 weeks. Since she was started on chemo, she is getting constant diarrhea and on and off nausea, vomiting. She has Zofran for nausea. Today at home she developed 101.8 degrees fevers and chills, so that is why she came here. No other complaints. No cough, no chest pain, no shortness of breath, no headache, no blurred visions, no earache, no runny nose. Has some sore throat because of vomiting. She had significant vomiting on Sunday. Currently no abdominal pain. Currently no blood in the stools or black stools. Normal bladder movements. No swelling in the legs, no rash. Ambulating okay. Appetite is not that great. Currently, resting comfortably and hemodynamically stable. In the ER, hemodynamics are stable, but her lactic acid was 2.5 when she came in, but repeat was normal. Potassium was 2.6, magnesium was 1.5. Procalcitonin was 1.34. SARS-CoV-2 PCR was negative and she also had a COVID shot. Admission Exam Per Admitting Provider GENERAL: The patient is obese, not in acute distress. VITAL SIGNS: Temperature 37.2, pulse 97, respiratory rate 13, blood pressure 144/96, oxygen 97% on room air. HEENT: Pupils equal, round and reactive to light. Oral mucosa dry. NECK: No JVD, no neck masses. HEART: S1 and S2 heard. Regular rate and rhythm. No murmur, no gallop. RESPIRATORY SYSTEM: Normal AP diameter. No accessory muscle use. No wheeze, no crackles. ABDOMEN: Soft, bowel sounds present, nontender, no distention. CENTRAL NERVOUS SYSTEM: Cranial nerves II-XII grossly intact, nonfocal. EXTREMITIES: No edema, no erythema. Principal Diagnosis Fever in immunocompromised patient (undergoing chemotherapy) Discharge Exam GENERAL: The patient is obese, not in acute distress. HEENT: NC/AT, EOMI, Pupils equal, round and reactive to light. Oral mucosa dry. NECK: No JVD, no neck masses. HEART: S1 and S2 heard. Regular rate and rhythm. No murmur, no gallop. RESPIRATORY: Normal AP diameter. No accessory muscle use. No wheeze, no crackles. ABDOMEN: Soft, bowel sounds present, nontender, no distention. NEURO: Alert and oriented and answering questions appropriately, no facial asymmetry, speech fluent, moves extremities spontaneously EXTREMITIES: No edema, no erythema. Discharge Data Allergies Allergy/AdvReac Type Severity Reaction Status Date / Time No Known Allergies Allergy Verified 09/24/20 20:04 Consultations 09/24/20 21:50 ED Decision to Admit Stat Ordered Studies 09/25/20 05:51 US liver Routine IMPRESSION: 1. Hepatic steatosis. Questionable hypoechoic lesion within liver parenchyma which shows no evidence of blood flow and is also seen during prior study. Metastatic disease cannot be completely ruled out. Please correlate above- mentioned findings with prior history. Further evaluation is per clinical protocol. Hospital Course (1) Fever: (2) Carcinoma of rectosigmoid (colon): This is a 50-year-old female who is on chemo for rectosigmoid cancer and presents with fever. 1. Fever in immunocompromised pt. 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 No neutropenia, no leukopenia or leukocytosis, but her lactic acid was 2.5 on admission. Afebrile since arriving to the hospital. Empirically started on vancomycin and cefepime, will stop vancomycin now repeat lactic acid 1.4 Procalcitonin 1.4 -> 0.8 We will follow the cultures. The patient also having ongoing diarrhea, will check stool for C. diff C. diff negative Ucultx - negative Blood cultx - negative in 48 hrs Stool cultx - so far negative Follow final stool cultx, blood cultx IV fluids and monitor in the tele floor. Patient is clinically much improved, and has been afebrile since admission. Inquiring about going home and following up with oncology. Discussed with Dr. Carr, patient's oncologist, as patient has appointment tomorrow (09/28/20). Will discharge patient on Augmentin for next 3 days. Will have her healthcare providers follow-up on final cultures. Patient to see Dr. Carr tomorrow. 2. Hypokalemia, hypomagnesemia, hypophosphatemia: Likely secondary to poor p.o. intake, and GI loss Replete and monitor Will discharge on small dose of potassium and Phos, follow-up levels as outpatient 3. Anemia and thrombocytopenia: Hemoglobin 11 and platelets of 111, possibly from chemo. Will follow the labs. 4. Rectosigmoid colon cancer: Currently on chemo. Follow up with heme/onc. 5. Elevated LFTs and alkaline phosphatase: Continue to monitor also get liver ultrasound. LFTs trending down Liver US - IMPRESSION: 1. Hepatic steatosis. Questionable hypoechoic lesion within liver parenchyma which shows no evidence of blood flow and is also seen during prior study. Metastatic disease cannot be completely ruled out. Please correlate above- mentioned findings with prior history. Further evaluation is per clinical protocol. DVT prophylaxis: Placed on Lovenox. Will follow the platelets. DISPOSITION: Plan to discharge home and follow up with family doctor and oncologist. Full code. Total Time Total Time Spent Total Time Spent (In Minutes): 35 Total Time Includes: Examination of the Patient, Discharge Planning, Medication Reconciliation and Communication With Other Providers Discharge Plan Discharge Items Patient Disposition: Home - Self-Care Reason For Visit: FEVER Discharge Diagnosis: Fever in immunocompromised patient (undergoing chemotherapy) Activity: Per Instructions section Non-emergency contact: Primary Care Provider and Specialist Call non-emergency contact if: you have any medication questions and your symptoms worsen Follow-up/Referrals: Kathy Espinosa, [Primary Care Provider] - Diet: Regular and Lactose Intolerant Addtl Attending Provider Instructions: Follow-up with your primary care doctor within 1 week. Follow-up with your oncologist, Dr. Carr, tomorrow as already scheduled. Finish antibiotic course treatment as prescribed, Augmentin for next 3 days. Take potassium and phosphorus supplement, you should have your levels checked again with your family physician or oncologist. Pending Studies at Discharge: Yes Studies:: Final blood cultures, final stool cultures Stand-Alone Forms: [facility], Smoking Cessation Medications and DC Order Prescriptions: New Phospha 250 Neutral 250 mg Tablet 1 tab PO BID Qty: 14 RF: 0 amoxicillin-pot clavulanate [Augmentin] 875-125 mg tablet 1 tab PO BID Qty: 7 RF: 0 potassium chloride 10 mEq tablet extended release 10 meq PO DAILY Qty: 14 RF: 0 Continued ondansetron HCl 8 mg tablet 8 mg PO Q8H PRN (Reason: Nausea) RF: 0 prochlorperazine maleate 10 mg tablet 10 mg PO Q6H PRN (Reason: Nausea) RF: 0 hyoscyamine sulfate 0.125 mg tablet 0.125 mg PO Q4 PRN (Reason: STOMACH CRAMPS) RF: 0 Folfoxiri 1 dose PO .[id number] RF: 0 olanzapine 5 mg tablet 5 mg PO UD PRN (Reason: NAUSEA FROM CHEMO) RF: 0 Discharge Orders: Discharge Order (Routine); Ordered 09/27/20 Ordered By: Abhay Goins Admission Data Admit Date/Time: 09/24/20 23:40 Attending Provider: Abhay Goins Admit Provider: Gus Paez Primary Care Provider: Kathy Espinosa Other Providers: Gus Paez
[2020-09-27 11:02] LABS: Alanine Aminotransferase 86 U/L (12-78); Albumin Level 1.7 gm/dl (3.4-5.0); Alkaline Phosphatase 106 U/L (45-117); Aspartate Aminotransferase 62 U/L (15-37); Bilirubin Direct < 0.1 mg/dl (0-0.2); Bilirubin,Total 0.2 mg/dl (0.2-1); Total Protein 6.3 gm/dl (6.4-8.2)
--- NOTE | 2020-09-27 13:39 | Pharmacy Report ---
Pharmacy Vanc AUC Short Note - Date of Service September 25, 2020 - Assessment & Plan Assessment 50 year old F admitted secondary to febrile illness. * PMHx significant for rectal cancer currently on chemotherapy. * Afebrile since arrival. No leukocytosis. No neutropenia. Procal and lactic acid elevated. Renal fxn stable. * Cultures pending. * Started on both vancomycin and cefepime, both of which are pharmacy consults. Indication is empiric for both which sets an automatic 48 hour stop date. Plan Vancomycin * AUC/PATRICIA is the preferred PK/PD target for vancomycin * AUC guided dosing is effective and associated with decreased risk of nephrotoxicity compared to traditional trough targets * Loading Dose: 2250 mg (24 mg/kg) IV x 1 * Maintenance Dose: 1250 mg (13 mg/kg) IV every 12 hours * This regimen is predicted to achieve a steady-state trough of 18 mcg/mL and steady-state AUC/PATRICIA of 564 mg/L.hr * This regimen may be associated with a 14% risk of nephrotoxicity * No trough will be ordered unless therapy is to be extended beyond 48 hours Cefepime * 2000 mg IV every 8 hours * Appropriate for indication and renal fxn Pharmacy will continue to follow and will adjust dose/frequency as necessary. Thank you.
[2020-09-27] MEDS ORDERED: POT PHOSPHATE MONOBASIC W/ SOD TAB PO SCH (21:00)
== END 2020-09-27 13:13 | disposition home or self-care (01) | DRG 864 ==
LOC: ED 19:24 → 2S 23:40